=== PATIENT | male | born 1995 | race Caucasian/White ===

== ENCOUNTER 2020-04-13 13:52 | Emergency (ER) | payer MEDICARE, OTHER ==
[2020-04-13 14:09] VITALS: O2SAT 96
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
[2020-04-13 14:46] VITALS: BP 134/79; PULSE 76
== END 2020-04-13 14:46 | disposition home or self-care (01) ==
LOC: ED 13:52
DX: M25.511 Pain in right shoulder (principal); G89.29 Other chronic pain; F45.42 Pain disorder with related psychological factors; X50.9XXA Other and unspecified overexertion or strenuous movements or postures, initial encounter; Y93.9 Activity, unspecified; Y92.9 Unspecified place or not applicable
CPT/HCPCS: 99283